=== PATIENT | female | born 1970 | race Caucasian/White ===

== ENCOUNTER 2023-08-15 11:36 | Outpatient (AMB) | payer OTHER, SELFPAY ==
--- NOTE | 2023-08-15 11:37 | A.OFFVIS_ITS ---
Vital Signs 08/15/23 11:45 Height 5 ft 4 in Weight 141 lb BMI 24.2 BP 95/64 Blood Pressure Location Rt brachial Position Sitting Pulse 75 Intake Visit Reasons: Hemorrhoids Intake Note: Patient referred by pcp Becca TITUS for hemorrhoids. Reports hemo rrhoids have been bothersome on and off for 20yrs. Patient c/o: intermittent flare w/pain. No improvement w/topical cream. Colonoscopy at [facility] in 2014. Bleeding since recent hysterectomy. 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 Her last colonoscopy was in proximally 2014. Patient denies any other GI symptoms or complaints. She denies any specific) blood per rectum, she has not noticed any change in the caliber of her stool. Patient denies any anorectal receptive practice. 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 Interrupted exam demonstrates a very large/significant posterior anal fissure. Small hemorrhoids were also seen. Rectal exam was deferred secondary to patient's discomfort. Assessment & Plan Assessment & Plan (1) Anal fissure: Code(s): K60.2 - Anal fissure, unspecified Category: Surgical Plan Present, patient will be treated conservatively regarding her posterior anal fissure. This included increasing her water intake, fiber intake, supplements including for example Metamucil or Citrucel, avoiding prolonged sitting on the toilet, Sitz baths, and other local wound measures. Patient will see me in s everal weeks time for follow-up. Should her symptoms progressively worsened and his interim, she has been instructed to contact the office will otherwise see me as directed above. All questions answered. Coding Level of Care Code New Pt Level 4 (36990) Diagnoses Anal fissure K60.2
[2023-08-15 11:45] VITALS: BP 95/64; PULSE 75; BMI 24.2
== END 2023-08-15 11:58 | disposition home or self-care (01) ==
PROVIDERS: PCP Nurse Practitioner Family; Visit Provider Surgery
DX: K60.2 Anal fissure, unspecified (principal)
CPT/HCPCS: 99203

== ENCOUNTER → 2023-08-15 11:36 | Outpatient (BNVA) | payer OTHER, SELFPAY | PROVIDERS: PCP Nurse Practitioner Family; Visit Provider Surgery ==

== ENCOUNTER 2023-09-26 09:33 | Outpatient (AMB) | payer OTHER, SELFPAY ==
[2023-09-26 09:40] VITALS: BP 94/57; PULSE 78; BMI 24.5
--- NOTE | 2023-09-26 09:40 | A.OFFVIS_ITS ---
Vital Signs 09/26/23 09:40 Height 5 ft 4 in Weight 143 lb BMI 24.5 BP 94/57 L Blood Pressure Location Rt brachial Position Sitting Pulse 78 Intake Visit Reasons: s/p anal fissure Intake Note: Patient here for 1m f/u anal fissure. Taking magnesium. Patient c/o: improvement, minimal bleeding episodes since last visit. Reamer Hand Required: No Accompanied by: Self / Same As Patient Allergies morphine Allergy (Mild, Verified 09/26/23 09:41) Unknown amoxicillin Adverse Reaction (Mild, Verified 09/26/23 09:41) Unresponsive HPI Comments Details: Patient presents for follow-up regarding her posterior anal fissure. She has marked improvement of her symptoms. She is on a bowel regimen which is working well with soft stool. She has had no hemorrhoidal symptoms as well. [facility] Medical History Ramiro's disease Surgical History H/O: hysterectomy Social History Alcohol intake: current Alcohol intake frequency: holidays/special occasions only Alcohol type: wine Patient Tobacco Use Status: Never used Tobacco Physical Exam Vital Signs: Last Vital Signs Pulse 78 09/26/23 09:40 BP 94/57 L 09/26/23 09:40 BMI result Body Mass Index 24.5 Other: Anorectal evaluation demonstrates posterior anal fissure has markedly healed and decreased in size. Small hemorrhoids but not inflamed or edematous or bleeding. Assessment & Plan Assessment & Plan (1) Anal fissure: Code(s): K60.2 - Anal fissure, unspecified Category: Surgical Plan Patient is continue her current bowel regimen and abdomen otherwise follow-up event. In the meantime, she had a colonoscopy within the last 10 years she thinks so we will arrange for GI evaluation for this. She also would like an evaluation regarding celiac disease which could be addressed with her hospital housekeeper for follow-up. Arrangements made for this. Patient otherw ise follow-up p.r.n. Orders: Referrals Gastroenterology Referral K90.0 - Celiac disease, Z98.890 - Other specified postprocedural states Coding Level of Care Code Est Pt Level 3 (48349) Diagnoses Anal fissure K60.2
== END 2023-09-26 09:53 | disposition home or self-care (01) ==
PROVIDERS: PCP Nurse Practitioner Family; Visit Provider Surgery
DX: K60.2 Anal fissure, unspecified (principal)
CPT/HCPCS: 99213

== ENCOUNTER → 2023-09-26 09:33 | Outpatient (BNVA) | payer OTHER, SELFPAY | PROVIDERS: PCP Nurse Practitioner Family; Visit Provider Surgery ==

== ENCOUNTER 2023-12-29 13:33 | Outpatient (AMB) | payer OTHER, SELFPAY ==
--- NOTE | 2023-12-29 13:38 | MHC.OFFVIS ---
Vital Signs 12/29/23 13:40 Height 5 ft 4 in Weight 141 lb 1.533 oz BMI 24.2 BP 89/50 L Blood Pressure Location Lt brachial Position Sitting Pulse 75 Intake Visit Reasons: Celiac disease Intake Note: Lisa presents in the office as a new patient for Celiac. CC: She would like to be tested for celiac - stated her stomach is a mess. She states that she has both constipation and diarrhea. Pains in the stomach. No blood when she has a BM. Allergies morphine Allergy (Mild, Verified 12/29/23 13:40) Unknown amoxicillin Adverse Reaction (Mild, Verified 12/29/23 13:40) Unresponsive HPI Comments Details: 53 y.o F with reported hx of celiac disease based on sx almost 12 years ago. Pt since then has been adhering to gluten free diet. Was living in [facility] for 2 years and now back since 2010. Reports has had longstanding issues with bowels, even had to be hospitalised for 2 times. Was seen in [facility] 2013 for pooping orange foam x 10 times a day. Was having to actively hydrate herself. Got started on supplements including a 4 months regimen of pre and pro biotics which improver her sx a lot. BM transitioned from liquid to semi formed and from 10 to 7 per day. 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 Now sx are abd cramping, frequent BMs which fluctuate loose to formed. Sometimes constipation which she describes as having no BMs per 1-2 days. Abd pain and cramping improves after defecation. Specifically etOH, sugary dessert, dairy. Not sure if gluten still bothersome as continues to avoid it. Has prev tried FODMAPs but a long time ago and gave it up due to so many limited foods. Pt s/p CCY 2006 [facility] Medical History Ramiro's disease Surgical History Hx of colonoscopy H/O: hysterectomy Social History Alcohol intake: current Alcohol intake frequency: holidays/special occasions only Alcohol type: wine Patient Tobacco Use Status: Never used Tobacco Review of Systems Const All systems reviewed & are unremarkable except as noted in HPI and below Physical Exam Vital Signs: Last Vital Signs Pulse 75 12/29/23 13:40 BP 89/50 L 12/29/23 13:40 BMI result Body Mass Index 24.2 No apparent distress Nonicteric Abdomen soft, nondistended Alert and oriented x3, normal gait Assessment & Plan Assessment & Plan (1) Abdominal pain: Code(s): R10.9 - Unspecified abdominal pain Category: Medical (2) Change in bowel habit: Code(s): R19.4 - Change in bowel habit Category: Medical Plan Ddx include IBD, post-infectious IBS, malabsorption such as celiac, disaccharidase def, SIBO, BAM etc, microscopic colitis. Plan: - Labs ordered - pt aware to get this done ON GLUTEN x 7 days - EGD/colo to be booked - again pt aware to take gluten x 1 week prior to procedure for small bowel biopsies - Will also start process for Sucraid for possible CSID Follow up after procedures Orders: Orders Calprotectin, Fecal Today R19.4 - Change in bowel habit TSH reflex Free T4 Today R19.4 - Change in bowel habit Transglutaminase IgA Today R19.4 - Change in bowel habit IRON PROFILE Today R19.4 - Change in bowel habit Complete Blood Count no Diff Today R19.4 - Change in bowel habit Comprehensive Met. Panel Today R19.4 - Change in bowel habit C Reactive Protein Today R19.4 - Change in bowel habit Immunoglobulin A Today R19.4 - Change in bowel habit Vitamin D 25-OH Total Today R19.4 - Change in bowel habit Vitamin B12 and Folate Today R19.4 - Change in bowel habit Medications: New peg 3350-electrolytes 236-22.74-6.74 -5.86 gram (Golytely) as per split prep instructions, until fecal effluent is clear 240 mL PO Q10M 4,000 mL 0RF colonoscopy Coding Level of Care Code New Pt Level 5 (92669) Complex EM visit Add On G2211 Diagnoses Abdominal pain R10.9 Change in bowel habit R19.4
[2023-12-29 13:40] VITALS: BP 89/50; PULSE 75; BMI 24.2
== END 2023-12-29 15:01 | disposition home or self-care (01) ==
PROVIDERS: PCP Nurse Practitioner Family; Visit Provider Internal Medicine
DX: R10.9 Unspecified abdominal pain (principal); R19.4 Change in bowel habit
CPT/HCPCS: 99204

== ENCOUNTER 2024-04-18 07:20 | Day surgery (SDC) | payer BC, SELFPAY ==
[2024-04-16 13:27] VITALS: BMI 24.2
--- NOTE | 2024-04-17 09:00 | P.CONAN_ITS ---
HPI - Anesthesia Eval Consult details Narrative: 53yo F for Upper Endoscopy and Colonoscopy PMFSH Active Problems Active Problems: All Active Problems Abdominal pain (Acute) Change in bowel habit (Acute) Anal fissure (Acute) Past Medical History Medical History Ramiro's disease Surgical History Surgical History Hx of colonoscopy H/O: hysterectomy Social History Social History Alcohol intake: current Alcohol intake frequency: holidays/special occasions only Alcohol type: wine Patient Tobacco Use Status: Never used Tobacco Meds Allergies Allergy/AdvReac Type Severity Reaction Status Date / Time morphine Allergy Mild Unknown Verified 12/29/23 13:40 amoxicillin AdvReac Mild Unresponsiv Verified 12/29/23 13:40 e Home Medications ?Medication ?Instructions ?Recorded ?Confirmed ?Last Taken ?Type estradiol 0.05 mg/24 hr semiweekly 1 patch transdermal 2XW 08/15/23 09/26/23 Unknown History transdermal patch lamotrigine 200 mg tablet 200 mg PO DAILY 08/15/23 09/26/23 Unknown History thyroid (pork) 120 mg tablet mg PO 08/15/23 09/26/23 Unknown History ([place] Thyroid) lorazepam 1 mg tablet mg PO 12/29/23 Unknown History Exam Height,Weight and Vital Signs: Height 5 ft 4 in Weight 63.957 kg Assessment and Plan Assessment Anesthesia Assessment: Chart Reviewed
[2024-04-18 08:22] VITALS: BP 112/68; PULSE 75; RESP 14; TEMP 36.6; O2SAT 97; BMI 24.0
--- NOTE | 2024-04-18 08:22 | MHC.SHP ---
Pre-Procedural Eval Section A - 24 Hr Update-Section A only Date of Service: 04/18/24 Section B - Complete if H&P > 30 days Chief Complaint: change in bowel habits Details of Present Illness: Ramiro's disease Surgical History Hx of colonoscopy H/O: hysterectomy Present Medications: see Short Stay Collaborative assessment Allergies: Allergies Allergy/AdvReac Type Severity Reaction Status Date / Time morphine Allergy Mild Unknown Verified 12/29/23 13:40 amoxicillin AdvReac Mild Unresponsiv Verified 12/29/23 13:40 e Review of Systems Review of Systems Comment: Ten point ROS negative Exam Exam Comment: Gen appear: No acute distress HEENT: no icterus Chest: No overt resp distress Abd: soft, nontender, nondistended Psych: Stable affect, answering questions appropriately Neuro: A/Ox3 noted to move all extremities spontaneously Ext: no peripheral edema Plan Diagnosis/Plan: Unchanged I have reviewed the history and physical and performed a pertinent physical examination on my patient. No changes have occurred unless specified. Time Spent With Patient Time: Total time managing care of this patient today ____ minutes.
[2024-04-18] MEDS: Lactated Ringers 1,000 ML 100 ML IVCONT (08:42)
[2024-04-18 10:04] VITALS: BP 122/78; PULSE 87; RESP 16; TEMP 36.3; O2SAT 98
[2024-04-18 10:19] VITALS: BP 120/80; PULSE 89; RESP 16; O2SAT 100
[2024-04-18 10:34] VITALS: BP 136/65; PULSE 68; RESP 20; TEMP 36.5; O2SAT 100
--- NOTE | 2024-04-18 10:40 | P.OPN-COLO_ITS ---
Colonoscopy Operative Note Operative Note Date of Service: 04/18/24 Narrative: Procedure: Upper endoscopy and colonoscopy Indication: CHange in bowel habits, diarrhea Endoscopist: Radha Lund MD Anesthesia Provider: Alison Amaro CRNA Anesthesia type: MAC Instrument: [id number] and [id number]-[id number] EGD Procedure:?? The procedure, indications, preparation and potential complications were reviewed with the patient, who indicated understanding and gave written informed consent to proceed. The endoscope was introduced through the mouth, and advanced to the 2nd part of the duodenum. The mucosa was carefully examined on slow withdrawal of the endoscope. The patient tolerated the procedure well. There were no immediate complications.? EGD Findings:? * Esophagus:? Normal esophageal mucosa was noted. The Z-line was at 39 cm. The GE junction was narrowed and gently dilated with the scope. Cold forceps biopsies were taken from middle and lower esophagus to rule out eosinophilic esophagitis. * Stomach:? Normal gastric mucosa. Retroflexion was performed in the cardia. Random cold forceps biopsies were taken from the stomach. * Duodenum:? Normal duodenal mucosa. Cold forceps biopsies were taken from the duodenal bulb and 2nd portion of the duodenum to rule out celiac sprue. Colonoscopy Procedure:? The patient was then turned for the colonoscopy. A digital rectal exam was performed which was normal.? A distal attachment cap was affixed to the tip of the scope and the colonoscope was then inserted through the anus and advanced through the colon and advanced to the cecum at 75 cm and terminal ileum.? Appendiceal orifice and ileocecal valve were identified. Mucosa was carefully examined under high definition white light as the instrument was slowly withdrawn in a retrograde panoramic fashion. Retroflexion was performed in a scending colon and rectum. The procedure was not difficult. The quality of the prep was BBPS: 3+2+3 = adequate Withdrawal time 9 minutes Limitations: No limitations Findings: Mucosa: Bilobed bleb nevus noted at 50 cm from anal orifice. No other bleb nevi noted throughout the colon. Mucosa otherwise normal to cecum and terminal ileum. Cold forceps biopsies were taken of the right and left side of the colon to rule out microscopic colitis. Protruding lesions: * Small internal hemorrhoids without stigmata of recent bleeding. Impression: 1. Normal esophagus (biopsy) 2. GEJ narrowing 3. Normal stomach (biopsy) 4. Normal duodenum (biopsy) 5. Normal colon and terminal ileum mucosa (biopsy) 6. Bleb nevus at 50 cm 7. Internal hemorrhoids Recommendations:?? * Follow-up path results * Management of diarrhea contingent on biopsy results * Avoid NSAIDs * Repeat colonoscopy for CRC screening in 10 years.
[2024-04-18] MEDS: Mag&Al/Sim/Diphenhyd/Lidocaine 10 ML ORAL.SUSP PO (10:44)
== END 2024-04-18 11:19 | disposition home or self-care (01) ==
PROVIDERS: Visit Provider Internal Medicine
PROC: (CPT 45380; principal; 2024-04-18 09:10)
DX: R19.4 Change in bowel habit (principal); R19.7 Diarrhea, unspecified; D12.5 Benign neoplasm of sigmoid colon; K64.8 Other hemorrhoids; R10.9 Unspecified abdominal pain; K20.80 Other esophagitis without bleeding; Z90.710 Acquired absence of both cervix and uterus; Z88.1 Allergy status to other antibiotic agents; Z88.5 Allergy status to narcotic agent; E06.3 Autoimmune thyroiditis
CPT/HCPCS: 45380; 43239; 88305; 88313; 88342; J1596; J2003; J2250; J2704

== ENCOUNTER → 2024-04-18 07:20 | Outpatient (BNV) | payer BC, SELFPAY | PROVIDERS: Visit Provider Internal Medicine | DX: R19.4 Change in bowel habit (principal); K22.2 Esophageal obstruction; K64.8 Other hemorrhoids | CPT/HCPCS: 43239; 45380 ==

== ENCOUNTER 2024-06-17 09:35 | Outpatient (AMB) | payer BC, SELFPAY ==
--- NOTE | 2024-06-17 09:43 | A.OFFVIS_ITS ---
Vital Signs 06/17/24 09:45 Height 5 ft 4 in Weight 141 lb 1.533 oz BMI 24.2 BP 96/65 Blood Pressure Location Lt brachial Position Sitting Pulse 71 Intake Visit Reasons: s/p colo and Egd Intake Note: Greg presents in the office as a follow up for her DOUBLE. CC: Having pains in the esophagus. Allergies morphine Allergy (Mild, Verified 06/17/24 09:45) Unknown amoxicillin Adverse Reaction (Mild, Verified 06/17/24 09:45) Unresponsive HPI Comments Details: 53 y.o F with reported hx of celiac disease based on sx almost 12 years ago. Pt since then has been adhering to gluten free diet. Was living in [place] for 2 years and now back since 2010. Reports has had longstanding issues with bowels, even had to be hospitalised for 2 times. Was seen in [facility] 2013 for pooping orange foam x 10 times a day. Was having to actively hydrate herself. Got started on supplements including a 4 months regimen of pre and pro biotics which improver her sx a lot. BM transitioned from liquid to semi formed and from 10 to 7 per day. 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 Now sx are abd cramping, frequent BMs which fluctuate loose to formed. Sometimes constipation which she describes as having no BMs per 1-2 days. Abd pain and cramping improves after defecation. Specifically etOH, sugary dessert, dairy. Not sure if gluten still bothersome as continues to avoid it. Has prev tried FODMAPs but a long time ago and gave it up due to so many limited foods. Pt s/p CCY 200604/18/24: 1. Normal esophagus (biopsy) 2. GEJ narrowing 3. Normal stomach (biopsy) 4. Normal duodenum (biopsy) 5. Normal colon and terminal ileum mucosa (biopsy) 6. Bleb nevus at 50 cm 7. Internal hemorrhoids Recommendations:?? * Follow-up path results * Management of diarrhea contingent on biopsy results * Avoid NSAIDs * Repeat colonoscopy for CRC screening in 10 years. Path: A. Duodenum, biopsy: Duodenal mucosa within normal limits. B. Stomach, biopsy: Antral-type and oxyntic mucosa with mild chronic inactive inflammation; no Helicobacter organisms seen. C. Esophagus, lower, biopsy: Active esophagitis (maximum eosinophil count 1 per high powered field). D. Esophagus, middle, biopsy: Squamous epithelium within normal limits; no inflammation seen. E. Colon, right, biopsy: Colonic mucosa within normal limits. F. Colon, left, biopsy: Colonic mucosa within normal limits. 06/17/24: Here for follow up. Reports good response to dilation, in fact wasnt aware that she used to have difficulty swallowing until the esopjagus was dilated and she was able to swallow more easily. Now feels sx may be returning. In terms of bowel habits, those are now normal since starting sucraid. Labs and path reviewed, no celiac. Pt has been enjoying gluten. Other labs reviewed - TSH 7.25 from april, advised to talk to endo re adjustment of armor thyroid. Vit D low, has also never had a dexa scan. [facility] Medical History Ramiro's disease Surgical History Hx of colonoscopy H/O: hysterectomy Social History Are you a primary child care group leader to a significant other at home: No Do you presently have visiting nurse or other home services: No Alcohol intake: current Alcohol intake frequency: holidays/special occasions only Alcohol type: wine Patient Tobacco Use Status: Former Tobacco user Review of Systems Const All systems reviewed & are unremarkable except as noted in HPI and below Physical Exam Vital Signs: Last Vital Signs Pulse 71 06/17/24 09:45 BP 96/65 06/17/24 09:45 BMI result Body Mass Index 24.2 No apparent distress Nonicteric Abdomen soft, nondistended Alert and oriented x3, normal gait Assessment & Plan Assessment & Plan (1) Dysphagia: Code(s): R13.10 - Dysphagia, unspecified Category: Medical (2) Abdominal pain: Code(s): R10.9 - Unspecified abdominal pain Category: Medical (3) Change in bowel habit: Code(s): R19.4 - Change in bowel habit Category: Medical (4) Vitamin D deficiency: Code(s): E55.9 - Vitamin D deficiency, unspecified Category: Medical Plan 1. 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 Will schedule repeat given recurrence of sx. 2. Change in bowel habits Lab and colo path reviewed. Likely 2/2 CSID given complete resolution on sucraid. Advised will likely need this indefinitely 3. Vit D deficiency Supplement sent to pharmacy DEXA ordered FOllow up after EGD or PRN Orders: Orders XR DEXA axial skeleton Today E55.9 - Vitamin D deficiency, unspecified Medications: New cholecalciferol (vitamin D3) 1,250 mcg PO QWEEK 90 days 13 caps 1RF E55.9 - Vitamin D deficiency, unspecified Coding Level of Care Code Est Pt Level 4 (74449) Diagnoses Dysphagia R13.10 Abdominal pain R10.9 Change in bowel habit R19.4 Vitamin D deficiency E55.9
[2024-06-17 09:45] VITALS: BP 96/65; PULSE 71; BMI 24.2
== END 2024-06-17 16:16 | disposition home or self-care (01) ==
LOC: HO.HGI 09:35
PROVIDERS: Visit Provider Internal Medicine
DX: R13.10 Dysphagia, unspecified (principal); R10.9 Unspecified abdominal pain; R19.4 Change in bowel habit; E55.9 Vitamin D deficiency, unspecified
CPT/HCPCS: 99214

== ENCOUNTER 2024-07-12 13:26 | Day surgery (SDC) | payer BC, SELFPAY ==
--- NOTE | 2024-07-11 10:33 | HO.ANESPROP2 ---
Documented by User: Estela Bender NP 07/11/24 10:33 HPI - Anesthesia Eval Consult details Narrative: 53yo F for Upper Endoscopy PMFSH Active Problems Active Problems: All Active Problems Dysphagia (Acute) Vitamin D deficiency (Acute) Abdominal pain (Acute) Change in bowel habit (Acute) Anal fissure (Acute) Past Medical History Medical History Ramiro's disease Surgical History Surgical History History of cholecystectomy [place] teeth extracted History of endoscopy Hx of colonoscopy H/O: hysterectomy Social History Social History Are you a primary family member caretaker to a significant other at home: No Do you presently have visiting nurse or other home services: No Alcohol intake: current Alcohol intake frequency: holidays/special occasions only Alcohol type: wine Patient Tobacco Use Status: Former Tobacco user Tobacco use type: Cigarette Years Smoked: 15 Smoked in Last 30 Days: No Use of substances other than those prescribed or required for medical reasons: Yes Substance Use Frequency: Daily Have you been hit, kicked, punched, or otherwise hurt by someone within the past year? If so, by whom?: No Are you DNR?: No Advance Directives: No Advance Directives Information Provided: No Advance Directives on File: No Patient : No : No Meds Allergies Allergy/AdvReac Type Severity Reaction Status Date / Time morphine Allergy Mild Chest Pain Verified 07/12/24 13:39 amoxicillin AdvReac Mild Unresponsiv Verified 07/12/24 13:39 e Home Medications ?Medication ?Instructions ?Recorded ?Confirmed ?Last Taken ?Type estradiol 0.05 mg/24 hr semiweekly 1 patch transdermal 2XW 08/15/23 07/12/24 Unknown History transdermal patch lamotrigine 200 mg tablet 200 mg PO DAILY 08/15/23 07/12/24 Unknown History thyroid (pork) 120 mg tablet 120 mg PO DAILY 08/15/23 07/12/24 07/12/24 History ([place] Thyroid) lorazepam 1 mg tablet 1 mg PO NEEDED PRN Anxiety 12/29/23 07/12/24 Unknown History clonidine HCl 0.1 mg tablet 0.1 mg PO NEEDED PRN as directed 06/17/24 07/12/24 Unknown History Pepcid 07/12/24 07/12/24 History Assessment and Plan Assessment Anesthesia Assessment: Chart Reviewed Documented by User: Yesica Lanier MD 07/12/24 14:24 [facility] Past Medical History Medical History Ramiro's disease Surgical History Surgical History History of cholecystectomy [place] teeth extracted History of endoscopy Hx of colonoscopy H/O: hysterectomy History of Problems with Anesthesia: No Social History Social History Are you a primary family member caretaker to a significant other at home: No Do you presently have visiting nurse or other home services: No Alcohol intake: current Alcohol intake frequency: holidays/special occasions only Alcohol type: wine Patient Tobacco Use Status: Former Tobacco user Tobacco use type: Cigarette Years Smoked: 15 Smoked in Last 30 Days: No Use of substances other than those prescribed or required for medical reasons: Yes Substance Use Frequency: Daily Have you been hit, kicked, punched, or otherwise hurt by someone within the past year? If so, by whom?: No Are you DNR?: No Advance Directives: No Advance Directives Information Provided: No Advance Directives on File: No Patient : No : No Meds Allergies Allergy/AdvReac Type Severity Reaction Status Date / Time morphine Allergy Mild Chest Pain Verified 07/12/24 13:39 amoxicillin AdvReac Mild Unresponsiv Verified 07/12/24 13:39 e Home Medications ?Medication ?Instructions ?Recorded ?Confirmed ?Last Taken ?Type estradiol 0.05 mg/24 hr semiweekly 1 patch transdermal 2XW 08/15/23 07/12/24 Unknown History transdermal patch lamotrigine 200 mg tablet 200 mg PO DAILY 08/15/23 07/12/24 Unknown History thyroid (pork) 120 mg tablet 120 mg PO DAILY 08/15/23 07/12/24 07/12/24 History ([place] Thyroid) lorazepam 1 mg tablet 1 mg PO NEEDED PRN Anxiety 12/29/23 07/12/24 Unknown History clonidine HCl 0.1 mg tablet 0.1 mg PO NEEDED PRN as directed 06/17/24 07/12/24 Unknown History Pepcid 07/12/24 07/12/24 History Exam Airway Mallampati Class: II TM Dist: >3cm Neck ROM: Full Loose/Missing/Broken Teeth: No Heart: RRR Lungs: CTA Assessment and Plan Assessment Anesthesia Assessment: Anesthesia Plan Discussed Final Anesthetic Review History of Problems with Anesthesia: No NPO: Yes ASA Class: II Final Preanesthetic Review: Meds/Allgs Chart Reviewed, Consent Obtained/Reviewed and Anes Risks/Benef Reviewed Patient Risk: Low Procedure Risk: Intermediate Anesthetic Plan Anesthetic Plan: MAC: Disposition: Standard PACU
[2024-07-12 13:44] VITALS: BP 105/66; PULSE 74; RESP 16; TEMP 36.4; O2SAT 98; BMI 25.5
[2024-07-12] MEDS: Lactated Ringers 1,000 ML 100 ML IVCONT (14:06)
--- NOTE | 2024-07-12 14:31 | MHC.SHP ---
Pre-Procedural Eval Section A - 24 Hr Update-Section A only Date of Service: 07/12/24 The patient is an INPATIENT: No The patient has been examined within 24 hours of the surgical procedure. The History & Physical has been completed within 30 days and I have reviewed it.: Yes Section B - Complete if H&P > 30 days Chief Complaint: Dysphagia Allergies: Allergies Allergy/AdvReac Type Severity Reaction Status Date / Time morphine Allergy Mild Chest Pain Verified 07/12/24 13:39 amoxicillin AdvReac Mild Unresponsiv Verified 07/12/24 13:39 e Plan Diagnosis/Plan: Unchanged I have reviewed the history and physical and performed a pertinent physical examination on my patient. No changes have occurred unless specified. Time Spent With Patient Time: Total time managing care of this patient today ____ minutes.
[2024-07-12 14:45] VITALS: BP 108/70; PULSE 64; RESP 12; TEMP 36.3; O2SAT 97
--- NOTE | 2024-07-12 14:46 | P.OP_ITS ---
Operative Note Operative Note Date of Service: 07/12/24 Narrative: Procedure: Esophagogastroduodenoscopy Endoscopist: Radha Lund MD Indication: Dysphagia Anesthesia Provider: Bradley Rivero CRNA Anesthesia Type: MAC ?? EGD Procedure:?? The procedure, indications, preparation and potential complications were reviewed with the patient, who indicated understanding and gave written informed consent to proceed. A physical exam was performed. The endoscope was introduced through the mouth, and advanced to the second part of duodenum. The mucosa was carefully examined on slow withdrawal of the endoscope. The patient tolerated the procedure well. There were no immediate complications.? ? EGD Findings:? * Esophagus:? Normal mucosa noted in the entire esophagus. The Z line was at 39 cm. Previous biopsies negative for eosinophilic esophagitis. * Stomach:? Normal mucosa was noted in the stomach. * Duodenum:? Normal mucosa was noted in the whole of the examined duodenum. Additional intervention: Soft tip Savary wire was introduced through the biopsy channel of the gastroscope and advanced to the antrum. ?The gastroscope was then backed out. ?Savary Eze bougie was advanced over the guidewire and the esophagus was dilated to 16 mm with resistance felt. ?On relook, scant heme with tear was noted in upper esophagus indicating successful dilation. ? ? EGD Impressions:? * Cricopharyngeal narrowing (dilation) * Normal stomach * Normal duodenum ?? Recommendations:?? * Recommend repeat endoscopy in 2-3 months for updilation to goal 18-20 mm. * Cont pepcid Above has been reviewed with the patient.
[2024-07-12 15:00] VITALS: BP 123/77; PULSE 81; RESP 16; TEMP 36.6; O2SAT 97
== END 2024-07-12 15:20 | disposition home or self-care (01) ==
PROVIDERS: PCP Nurse Practitioner Family; Visit Provider Internal Medicine
PROC: 0DJ08ZZ Inspection of Upper Intestinal Tract, Via Natural or Artificial Opening Endoscopic (ICD-10-PCS; CPT 43235; principal; 2024-07-12 14:50)
DX: R13.10 Dysphagia, unspecified (principal); E55.9 Vitamin D deficiency, unspecified; E06.3 Autoimmune thyroiditis; Z87.891 Personal history of nicotine dependence
CPT/HCPCS: 43245; C1769

== ENCOUNTER → 2024-07-12 13:26 | Outpatient (BNV) | payer BC, SELFPAY | PROVIDERS: PCP Nurse Practitioner Family; Visit Provider Internal Medicine | DX: J39.2 Other diseases of pharynx (principal); R13.10 Dysphagia, unspecified | CPT/HCPCS: 43245 ==

== ENCOUNTER → 2024-07-19 14:00 | Outpatient (BNV) | payer BC, SELFPAY | PROVIDERS: PCP Nurse Practitioner Family; Visit Provider Radiology Diagnostic Radiology | DX: E28.39 Other primary ovarian failure (principal) | CPT/HCPCS: 77080 ==

== ENCOUNTER 2024-07-19 14:01 | Outpatient (REF) | payer BC, SELFPAY ==
--- NOTE | ~2024-07-19 | MM_ITS ---
EXAMINATION: DXA BONE DENSITY AXIAL HISTORY: E55.9 - Vitamin D deficiency, unspecified TECHNIQUE: [employer] Dual energy absorptiometry (DEXA) of the lumbar spine, total left hip, and femoral neck was performed. COMPARISON: There are no prior studies for comparison. FINDINGS: The bone mineral density of the lumbar spine is 1.246, corresponding to a T-score of 0.6, and a Z-score of 1.3. This is indicative of normal bone mineral density. The bone mineral density of the left total hip is 0.990, corresponding to a T-score of -0.1, and a Z-score of 0.5. This is indicative of normal bone mineral density. The bone mineral density of the left femoral neck is 1.007, corresponding to a T-score of -0.2, and a Z-score of 0.8. This is indicative of normal bone mineral density. FRACTURE RISK: The FRAX index suggests a risk of major osteoporotic fracture of 4.7%, and of hip fracture 0.1%. MM/XR DEXA axial skeleton IMPRESSION: Based on bone mineral density, and according to World Health Organization (WHO) criteria, the diagnosis is consistent with normal bone mineral density. All bone density values are in grams per centimeter squared (g/cm2). Statistically, 68% of repeat scans fall within 1 SD (+/- 0.010 g/cm2 for AP spine L1-L4) and 1 SD (+/- 0.012 g/cm2 for femur total) FRAX is a trademark of the [employer] [place] [facility] [employer], a World Health Organization (WHO) Collaborating Center. Electronically signed by: Mario Zhao MD 07/19/2024 02:50 PM EDT
== END 2024-07-19 14:02 | disposition home or self-care (01) ==
LOC: HO.MAMMO 14:01
PROVIDERS: PCP Nurse Practitioner Family; Visit Provider Internal Medicine
DX: Z13.820 Encounter for screening for osteoporosis (principal); E55.9 Vitamin D deficiency, unspecified
CPT/HCPCS: 77080